=== PATIENT | female | born 1995 | race Caucasian/White ===

== ENCOUNTER 2021-02-02 09:30 | Outpatient (CLI) | payer OTHER ==
[2021-02-02 16:14] LABS: BILIRUBIN,URINE NEGATIVE (NEGATIVE); GLUCOSE, URINE (UA) NEGATIVE (NEGATIVE); KETONES,URINE (UA) NEGATIVE (NEGATIVE); LEUKOCYTE ESTERASE, URINE NEGATIVE (NEGATIVE); NITRITE,URINE NEGATIVE (NEGATIVE); OCCULT BLOOD,URINE NEGATIVE (NEGATIVE); PROTEIN,URINE NEGATIVE (NEGATIVE); UROBILINOGEN,URINE 0.2 (NORMAL) E.U./dL (NORMAL)
[2021-02-02 16:29] LABS: BACTERIA,URINE Many /HPF (None Seen); CLARITY,URINE CLEAR (CLEAR); RBC,URINE None Seen /HPF (0-5); SQUAMOUS EPITHELIAL CELL,UR MANY Squamous (<= Few); WBC,URINE 0-3 /HPF (0-5)
== END 2021-02-02 23:59 | disposition home or self-care (01) ==
LOC: LAB.WC 09:30
PROVIDERS: ATTEND Obstetrics & Gynecology
DX: Z32.01 Encounter for pregnancy test, result positive (principal)
CPT/HCPCS: 81001; 87086

== ENCOUNTER 2021-03-11 16:20 | Outpatient (CLI) | payer OTHER ==
--- NOTE | 2021-03-12 09:10 | Ultrasound Report ---
PROCEDURE: OB First Trimester INDICATIONS: +PREG TEST OUTSIDE/PRIOR DATING DATA: Last menstrual period (LMP): 12/20/2020. LMP-based estimated date of delivery (PAOLA): 09/26/2021. First dating scan (date and location): 03/11/2021. Estimated date of delivery (PAOLA) from first dating scan: 09/24/2021. The below data below was generated using the ultrasound generated PAOLA of 09/24/2021 TECHNIQUE: Real-time scanning was performed of the fetus and maternal pelvic organs, with image documentation. COMPARISON: None. FINDINGS: Embryo: Mean gestational sac diameter is 5.8 cm. [place]-rump length measures 5.3 cm. These measuremen ts correspond to a gestational age of 11 weeks 6 days. Heart rate: 176 bpm Measurement variability in dating: +/- 4 weeks by LMP, +/- 7 days by mean sac diameter (use before 6 weeks gestation if crown-rump length not able to be measured), +/- 5 days by crown-rump length (6-12 weeks gestation). Maternal organs: Ovaries normal. Right corpus luteum cyst noted. IMPRESSION: Single live intrauterine gestation with estimated ultrasound age of 11 weeks 6 days and estimated cristopher e of delivery 09/24/2021. Reviewed by: Nahum Silver MD on 03/12/2021 9:08 AM PST Approved by: Nahum Silver MD on 03/12/2021 9:08 AM PST Station ID: [id number]
== END 2021-03-11 16:21 | disposition home or self-care (01) ==
LOC: DI 16:20
PROVIDERS: ATTEND Obstetrics & Gynecology
DX: Z32.01 Encounter for pregnancy test, result positive (principal)

== ENCOUNTER 2021-03-12 13:15 | Outpatient (CLI) | payer OTHER ==
[2021-03-12 22:09] LABS: CHLAMYDIA TRACHOMATIS DNA NEGATIVE (NEGATIVE); NEISSERIA GONORRHOEAE DNA NEGATIVE (NEGATIVE); TRICHOMONAS VAGINALIS DNA NEGATIVE (NEGATIVE)
== END 2021-03-12 23:59 | disposition home or self-care (01) ==
LOC: LAB 13:15
PROVIDERS: ATTEND Obstetrics & Gynecology
DX: Z11.3 Encounter for screening for infections with a predominantly sexual mode of transmission (principal); A59.00 Urogenital trichomoniasis, unspecified
CPT/HCPCS: 87491; 87591; 87661

== ENCOUNTER 2021-05-07 10:47 | Outpatient (CLI) | payer OTHER ==
[2021-05-08 15:41] LABS: AFP MOM 1.13; AGE RISK DOWN SYNDROME 1 IN 1024; CALC'D GESTATIONAL AGE 19.7 weeks; CIGARETTE SMOKER? NOT GIVEN; DONOR AGE: EGG RETRIEVAL NOT GIVEN; DONOR EGG NO; ESTRIOL MOM 0.81; HCG MOM 1.76; HX OF NEURAL TUBE DEFECTS NO; INHIBIN A MOM 1.05; INSULIN DEPEND DIABETIC NO; MATERNAL WEIGHT 213 lbs; MSS DOWN SYNDROME RISK 1 IN 3968; MSS3 TRISOMY 18 RISK <1 IN 5000; NUMBER OF FETUSES 1; PREV PREGNANCY DOWN SYND NO; RISK FOR ONTD 1 IN 2539
== END 2021-05-07 10:48 | disposition home or self-care (01) ==
LOC: LAB 10:47
PROVIDERS: ATTEND Obstetrics & Gynecology
DX: Z34.90 Encounter for supervision of normal pregnancy, unspecified, unspecified trimester (principal)
CPT/HCPCS: 36415; 81511

== ENCOUNTER 2021-05-10 12:43 | Outpatient (CLI) | payer OTHER ==
[2021-05-10 13:03] LABS: BASOPHILS % (AUTO) 0.4 %; EOSINOPHILS # (AUTO) 0.4 10^3/uL (0.0-0.7); EOSINOPHILS % (AUTO) 3.8 %; HCT - HEMATOCRIT 35.5 % (37.0-47.0); HGB - HEMOGLOBIN 12.2 g/dL (12.0-16.0); LYMPHOCYTES # (AUTO) 2.1 10^3/uL (1.5-3.5); LYMPHOCYTES % (AUTO) 21.1 %; MEAN CORPUSCULAR HEMOGLOBIN 30.1 pg (27.0-31.0); MEAN CORPUSCULAR HGB CONC 34.4 g/dL (32.0-36.0); MEAN CORPUSCULAR VOLUME 87.7 fL (81.0-99.0); MEAN PLATELET VOLUME 10.3 fL (7.9-10.8); MONOCYTES # (AUTO) 0.7 10^3/uL (0.0-1.0); MONOCYTES % (AUTO) 6.8 %; NEUTROPHILS # (AUTO) 6.8 10^3/uL (1.5-6.6); NEUTROPHILS % (AUTO) 67.4 %; PLT - PLATELET COUNT 248 10^3/uL (130-450); RED BLOOD COUNT 4.05 10^6/uL (4.20-5.40); RED CELL DISTRIBUTION WIDTH 12.9 % (12.0-15.0); WHITE BLOOD COUNT 10.1 x10^3/uL (4.8-10.8)
[2021-05-11 09:26] LABS: HEPATITIS C ANTIBODY NON-REACTIVE (NON-REACTIVE)
[2021-05-11 11:56] LABS: HEPATITIS B SURFACE ANTIGEN NON-REACTIVE (NON-REACTIVE)
[2021-05-11 13:10] LABS: HIV AG/AB 4TH GEN NON-REACTIVE (NON-REACTIVE)
== END 2021-05-10 12:44 | disposition home or self-care (01) ==
LOC: LAB 12:43
PROVIDERS: ATTEND Obstetrics & Gynecology
DX: Z36.89 Encounter for other specified antenatal screening (principal)
CPT/HCPCS: 36415; 85025; 86592; 86762; 86787; 86803; 86850; 86900; 86901; 87340; 87389

== ENCOUNTER 2021-05-14 20:25 | Outpatient (CLI) | payer OTHER ==
--- NOTE | 2021-05-15 12:13 | Ultrasound Report ---
PROCEDURE: OB Detailed Eval INDICATIONS: SUPERVISION NORMAL OUTSIDE/PRIOR DATING DATA: Last menstrual period (LMP): 12/20/2020. LMP-based estimated date of delivery (PAOLA): 09/26/2021. First dating scan (date and location): 03/11/2021. Estimated date of delivery (PAOLA) from first dating scan: 09/24/2021. The below data below was generated using the ultrasound PAOLA of 09/24/2021 TECHNIQUE: Real-time scanning was performed of the fetus, with image documentation and biometric measurements. Endovaginal scanning: Performed COMPARISON: 03/11/2021. FINDINGS: General: A single living intrauterine gestation is present. Presentation: Variable Placenta: Placental position is anterior, without previa. Amniotic fluid index: 14.8 cm, normal 5-24 cm. Single largest amniotic fluid pocket 4.7 cm. heart rate: 164 beats per minute. Maternal cervical canal: Closed and 4.8 cm long; normal length is 2.5 cm or more. biometrics: Biparietal diameter: 19 weeks 6 days Head circumference: 20 weeks 6 days Abdominal circumference: 21 weeks 3 days Femur length: 21 weeks 2 days Estimated gestational age from initial scan: 21 weeks 0 days. Composite gestational age from present scan: 20 weeks 4 days Estimated weight and percentile: 406 g; 56th percentile Measurement variability in biometric dating: +/- 10 days from 12-20 weeks gestation, +/- 2 weeks from 20-30 weeks gestation, +/- 3 weeks at 30 weeks gestation or later. Anatomic survey: Neuro: Ventricles are normal at less than 10 mm. Cisterna magna is normal at 3-11 mm. Cerebellum i s normal in size and morphology. Nuchal skin fold: Normal at less than 6 mm between 14 and 20 weeks gestational age. Face: Nose and lips are normal. profile not well visualized due to position Spine: Not well-visualized due to position. Heart: 4-chambered heart is present. Left ventricular outflow tract not well-visualized due to position. Diaphragm: Diaphragm is intact. Stomach: Left-sided stomach is present. Kidneys: No hydronephrosis. Normal is less than 5 mm in 2nd trimester, less than 7 mm in 3rd trimester. Cord: 3 vessel cord has orthotopic insertion. Bladder: Normal in size. Extremities: All 4 extremities are visualized. IMPRESSION: 1. Single living intrauterine fetus with appropriate interval growth. 2. Normal amniotic fluid index. 3. facial profile, spine and heart left ventricle outflow tract not well visualized and cannot be evaluated. Recommend short-term follow-up limited obstetrical ultrasound. anatom ic survey otherwise normal. Reviewed by: Beverly Hernandez MD, PhD on 05/15/2021 12:12 PM PST Approved by: Beverly Hernandez MD, PhD on 05/15/2021 12:12 PM PST Station ID: [id number]
== END 2021-05-14 20:26 | disposition home or self-care (01) ==
LOC: DI 20:25
PROVIDERS: ATTEND Obstetrics & Gynecology
DX: Z34.02 Encounter for supervision of normal first pregnancy, second trimester (principal); Z3A.20 20 weeks gestation of pregnancy; Z36.89 Encounter for other specified antenatal screening

== ENCOUNTER 2021-05-19 11:19 | Outpatient (CLI) | payer OTHER ==
--- NOTE | 2021-05-19 18:25 | Ultrasound Report ---
PROCEDURE: OB F/U or Repeat INDICATIONS: SUPERVISION OF OUTSIDE/PRIOR DATING DATA: Last menstrual period (LMP): 12/20/2020. LMP-based estimated date of delivery (PAOLA): 09/26/2021. First dating scan (date and location): 03/11/2021. Estimated date of delivery (PAOLA) from first dating scan: 09/24/2021. The below data below was generated using the ultrasound PAOLA of 09/24/2021 TECHNIQUE: Real-time scanning was performed of the fetus, with image documentation. COMPARISON: 05/14/2021, 03/11/2021 FINDINGS: General: A single live intrauterine gestation is present. Presentation: Breech Placenta: Placental position is anterior, without previa. Amniotic fluid index: 13.5 cm, within normal limits for gestational age. Largest pocket of fluid: 4.1 cm heart rate: 150 beats per minute. Maternal cervical canal: 5.8 cm long; normal length is 2.5 cm or more. The spine and the skin line are unremarkable. The left ventricular outflow tract is unremarkable. An echogenic cardiac focus can be seen. IMPRESSION: The spine and the skin line are within normal limits. The left ventricular contractility is unremarkable. An echogenic intracardiac focus is noted. While this has been described in patients with chromosomal abnormalities, it is most commonly a benign, incidental finding. Reviewed by: Wade Tobar MD on 05/19/2021 5:23 PM [facility] Approved by: Wade Tobar MD on 05/19/2021 5:23 PM [facility] Station ID: [id number]
== END 2021-05-19 11:20 | disposition home or self-care (01) ==
LOC: DI 11:19
PROVIDERS: ATTEND Obstetrics & Gynecology
DX: Z34.00 Encounter for supervision of normal first pregnancy, unspecified trimester (principal)

== ENCOUNTER 2021-07-11 11:53 | Outpatient (CLI) | payer OTHER ==
[2021-07-11 13:22] LABS: HCT - HEMATOCRIT 33.2 % (37.0-47.0); HGB - HEMOGLOBIN 11.2 g/dL (12.0-16.0); MEAN CORPUSCULAR HEMOGLOBIN 29.6 pg (27.0-31.0); MEAN CORPUSCULAR HGB CONC 33.7 g/dL (32.0-36.0); MEAN CORPUSCULAR VOLUME 87.6 fL (81.0-99.0); MEAN PLATELET VOLUME 9.3 fL (7.9-10.8); RED BLOOD COUNT 3.79 10^6/uL (4.20-5.40); RED CELL DISTRIBUTION WIDTH 12.2 % (12.0-15.0); WHITE BLOOD COUNT 10.1 x10^3/uL (4.8-10.8)
== END 2021-07-11 11:54 | disposition home or self-care (01) ==
LOC: LAB 11:53
PROVIDERS: ATTEND Obstetrics & Gynecology
DX: Z34.00 Encounter for supervision of normal first pregnancy, unspecified trimester (principal); Z36.89 Encounter for other specified antenatal screening
CPT/HCPCS: 36415; 82950; 85027

== ENCOUNTER 2021-07-26 13:46 | Outpatient (CLI) | payer OTHER ==
[2021-07-26 14:08] LABS: BASOPHILS % (AUTO) 0.2 %; EOSINOPHILS # (AUTO) 0.4 10^3/uL (0.0-0.7); EOSINOPHILS % (AUTO) 3.5 %; HCT - HEMATOCRIT 34.5 % (37.0-47.0); HGB - HEMOGLOBIN 11.3 g/dL (12.0-16.0); LYMPHOCYTES # (AUTO) 2.1 10^3/uL (1.5-3.5); LYMPHOCYTES % (AUTO) 18.9 %; MEAN CORPUSCULAR HEMOGLOBIN 28.5 pg (27.0-31.0); MEAN CORPUSCULAR HGB CONC 32.8 g/dL (32.0-36.0); MEAN CORPUSCULAR VOLUME 86.9 fL (81.0-99.0); MEAN PLATELET VOLUME 9.4 fL (7.9-10.8); MONOCYTES # (AUTO) 0.7 10^3/uL (0.0-1.0); MONOCYTES % (AUTO) 6.2 %; NEUTROPHILS # (AUTO) 7.6 10^3/uL (1.5-6.6); NEUTROPHILS % (AUTO) 70.5 %; PLT - PLATELET COUNT 282 10^3/uL (130-450); RED BLOOD COUNT 3.97 10^6/uL (4.20-5.40); RED CELL DISTRIBUTION WIDTH 12.1 % (12.0-15.0); WHITE BLOOD COUNT 10.8 x10^3/uL (4.8-10.8)
[2021-07-26 14:15] LABS: CREATININE,URINE 68.3 mg/dL; PROTEIN/CREATININE RATIO,URINE 0.1 (<=0.2)
[2021-07-26 14:20] LABS: ALBUMIN 3.3 g/dL (3.2-5.5); ALBUMIN/GLOBULIN RATIO 0.8 (1.0-2.2); BILIRUBIN,TOTAL 0.5 mg/dL (0.2-1.0); CALCIUM 9.1 mg/dL (8.5-10.3); CREATININE 0.5 mg/dL (0.4-1.0); POTASSIUM 3.6 mmol/L (3.5-5.0); TOTAL PROTEIN 7.6 g/dL (6.7-8.2)
[2021-07-26 14:45] VITALS: BP 129/85
--- NOTE | 2021-07-26 16:54 | PROVIDER PROGRESS NOTE ---
- HPI Chief Complaint: Hypertension/PIH Current : Current EDU 09/26/21 Gestation 31 Weeks and 1 Days 3 Para 2 Vital Signs Temperature 98.1 F 07/26/21 14:04 Heart Rate 116 H 07/26/21 14:04 Respiratory Rate 16 07/26/21 14:04 Blood Pressure 153/88 H 07/26/21 14:04 O2 Saturation 100 07/26/21 14:04 Temperature 97.9 F 07/26/21 15:22 Heart Rate 120 H 07/26/21 14:13 Respiratory Rate 17 07/26/21 14:13 Blood Pressure 129/85 H 07/26/21 14:45 O2 Saturation 100 07/26/21 14:13 - Procedures OB Procedure Performed: NST Diagnosis/Indication for NST: Gestational Hypertension NST Procedure: NST Procedure Start Date 07/26/21 Start Time 14:00 Stop Time 14:30 Vibroacoustic Stimulation Used No Patient States Movement Yes Service Date of procedure: 07/26/21 (Read: 07/26/21) Findings: Laboratory Last Values WBC 10.8 x10^3/uL (4.8-10.8) 07/26/21 14:02 RBC 3.97 10^6/uL (4.20-5.40) L 07/26/21 14:02 Hgb 11.3 g/dL (12.0-16.0) L 07/26/21 14:02 Hct 34.5 % (37.0-47.0) L 07/26/21 14:02 MCV 86.9 fL (81.0-99.0) 07/26/21 14:02 MCH 28.5 pg (27.0-31.0) 07/26/21 14:02 MCHC 32.8 g/dL (32.0-36.0) 07/26/21 14:02 RDW 12.1 % (12.0-15.0) 07/26/21 14:02 Plt Count 282 10^3/uL (130-450) 07/26/21 14:02 MPV 9.4 fL (7.9-10.8) 07/26/21 14:02 Neut # (Auto) 7.6 10^3/uL (1.5-6.6) H 07/26/21 14:02 Lymph # (Auto) 2.1 10^3/uL (1.5-3.5) 07/26/21 14:02 Whiteside # (Auto) 0.7 10^3/uL (0.0-1.0) 07/26/21 14:02 Eos # (Auto) 0.4 10^3/uL (0.0-0.7) 07/26/21 14:02 Baso # (Auto) 0.0 10^3/uL (0.0-0.1) 07/26/21 14:02 Absolute Nucleated RBC 0.00 x10^3/uL 07/26/21 14:02 Nucleated RBC % 0.0 /100WBC 07/26/21 14:02 Sodium 132 mmol/L (135-145) L 07/26/21 14:02 Potassium 3.6 mmol/L (3.5-5.0) 07/26/21 14:02 Chloride 101 mmol/L (101-111) 07/26/21 14:02 Carbon Dioxide 20 mmol/L (21-32) L 07/26/21 14:02 Anion Gap 11.0 (6-13) 07/26/21 14:02 BUN 12 mg/dL (6-20) 07/26/21 14:02 Creatinine 0.5 mg/dL (0.4-1.0) 07/26/21 14:02 Estimated GFR (MDRD) 150 (>89) 07/26/21 14:02 Glucose 123 mg/dL (70-100) H 07/26/21 14:02 Calcium 9.1 mg/dL (8.5-10.3) 07/26/21 14:02 Total Bilirubin 0.5 mg/dL (0.2-1.0) 07/26/21 14:02 AST 19 IU/L (10-42) 07/26/21 14:02 ALT 20 IU/L (10-60) 07/26/21 14:02 Alkaline Phosphatase 82 IU/L (42-121) 07/26/21 14:02 Total Protein 7.6 g/dL (6.7-8.2) 07/26/21 14:02 Albumin 3.3 g/dL (3.2-5.5) 07/26/21 14:02 Globulin 4.3 g/dL (2.1-4.2) H 07/26/21 14:02 Albumin/Globulin Ratio 0.8 (1.0-2.2) L 07/26/21 14:02 Urine Creatinine 68.3 mg/dL 07/26/21 14:02 Ur Total Protein Timed 7 mg/dL 07/26/21 14:02 Protein/Creatinin Ratio 0.1 (<=0.2) 07/26/21 14:02 - Plan Plan: Patient is a 25-year-old at 31 weeks 1 day gestation presenting to triage for elevated blood pressures seen in clinic. She has good movement, no leaking, no vaginal bleeding. She denies headache, right upper quadrant pain, changes in vision. All other symptoms reviewed and were negative except per HPI. PMH: Gestational hypertension Past surgical history: Denies previous surgeries Family history: Denies pertinent history Medications: Ondansetron 4 mg as needed, vitamins Social history Denies tobacco, alcohol, drugs Physical Exam Constitutional: alert, no acute distress, well hydrated, well developed, well nourished, appropriate dress. Skin: normal turgor, normal color. Head: atraumatic, normocephalic. Cardiovascular: RRR. Respiratory: no respiratory distress. Abdomen: nondistended, nontender. Spine: normal mobility. Neurologic: normal, sensation intact, motor intact. Psych: affect and mood appropriate, normal interaction, good eye contact. FHT: 130 bpm baseline, moderate variability, accelerations present, no declerations Assessment and plan 25-year-old at 31 weeks 1 day gestation here for NST with gestational hypertension 1. Gestational hypertension -Labs not concerning for worsening disease. Did not meet criteria for preeclampsia. We will continue to monitor at this time. -Blood pressure continues to be elevated, but nonsevere. -Reactive NST -Plan for follow-up in clinic.
== END 2021-07-26 15:05 | disposition home or self-care (01) ==
LOC: WFO 13:46 → FBP 13:49 → WFO 15:05
PROVIDERS: ATTEND Obstetrics & Gynecology
DX: O13.3 Gestational [pregnancy-induced] hypertension without significant proteinuria, third trimester (principal); Z3A.31 31 weeks gestation of pregnancy
CPT/HCPCS: 36415; 59025; 80053; 82570; 84156; 85025; 99214

== ENCOUNTER 2021-07-30 16:15 | Outpatient (CLI) | payer OTHER ==
[2021-07-30 17:22] VITALS: BP 129/63
--- NOTE | 2021-07-30 17:28 | PROVIDER PROGRESS NOTE ---
- HPI Chief Complaint: Leakage of vaginal fluid - Procedures OB Procedure Performed: NST Diagnosis/Indication for NST: Other (Assure wellbeing) NST Procedure: NST Procedure Start Time 14:00 Stop Time 14:30 Service Date of procedure: 07/30/21 (Read: 07/30/21) - Plan Plan: Patient is a 25-year-old -0-0-2 at 31 weeks 5 days gestation complaining of leaking of fluid that started over the weekend. Is happened several times over the last few days. She denies contractions. She has good movement, no vaginal bleeding. She denies headache, right upper quadrant pain, changes in vision. All other symptoms reviewed and were negative except per HPI. OB history -0-0-2 1. 08/15/2015, 41 weeks, 7 pounds 14 ounces 12/10/2019, 40 weeks, 7 pounds 14 ounces. Past medical history No pertinent medical history Past surgical history No prior surgeries Family history No significant family history Social history Denies tobacco, alcohol, drugs Physical Exam Temp Pulse Resp BP Pulse Ox 99.0 F 115 H 129/63 100 07/30/21 17:15 07/30/21 17:15 07/30/21 17:15 07/30/21 16:38 Constitutional: alert, no acute distress, well hydrated, well developed, well nourished, appropriate dress. Head: atraumatic, normocephalic. Cardiovascular: RRR. Respiratory: no respiratory distress. Abdomen: nondistended, nontender. Neurologic: normal, sensation intact, motor intact. Psych: affect and mood appropriate, normal interaction, good eye contact. SSE: Negative pooling, negative Valsalva. Moderate amount of thin white discharge. SVE: 0/0/-3 150 beats per minute baseline, moderate variability, accelerations present, no decelerations. 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 Laboratory Last Values Urine Color YELLOW 07/30/21 16:20 Urine Clarity CLEAR (CLEAR) 07/30/21 16:20 Urine pH 6.5 PH (5.0-7.5) 07/30/21 16:20 Ur Specific [place] 1.020 (1.002-1.030) 07/30/21 16:20 Urine Protein NEGATIVE mg/dL (NEGATIVE) 07/30/21 16:20 Urine Glucose (UA) NEGATIVE mg/dL (NEGATIVE) 07/30/21 16:20 Urine Ketones NEGATIVE mg/dL (NEGATIVE) 07/30/21 16:20 Urine Occult Blood NEGATIVE (NEGATIVE) 07/30/21 16:20 Urine Nitrite NEGATIVE (NEGATIVE) 07/30/21 16:20 Urine Bilirubin NEGATIVE (NEGATIVE) 07/30/21 16:20 Urine Urobilinogen 0.2 (NORMAL) E.U./dL (NORMAL) 07/30/21 16:20 Ur Leukocyte Esterase NEGATIVE (NEGATIVE) 07/30/21 16:20 Ur Microscopic Review NOT INDICATED 07/30/21 16:20 Urine Culture Comments NOT INDICATED 07/30/21 16:20 Membranes Rupture NEGATIVE (NEGATIVE) 07/30/21 16:45 C. glabrata (PCR) NEGATIVE (NEGATIVE) 07/30/21 16:45 C. krusei (PCR) NEGATIVE (NEGATIVE) 07/30/21 16:45 Nohemy species DNA NEGATIVE (NEGATIVE) 07/30/21 16:45 T. vaginalis (PCR) NEGATIVE (NEGATIVE) 07/30/21 16:45 Bact Vaginosis (PCR) NEGATIVE (NEGATIVE) 07/30/21 16:45 Assessment and plan 25-year-old -0-0-2 at 31 weeks 5 days gestation leaking fluid without rupture of membranes. 1. Rule out rupture -Negative ROM plus and nonconcerning sterile speculum exam. -Negative vaginitis panel. Will follow up on GC/CT. 2. 31 weeks gestation -Follow-up in clinic for care. 3. Gestational hypertension -Blood pressures remain elevated but nonsevere. -NST/BPP pending starting at 32 weeks -No significant change from previous exam.
[2021-07-30 17:36] LABS: RUPTURE OF MEMBRANES PLUS NEGATIVE (NEGATIVE)
[2021-07-30 19:12] LABS: BACTERIAL VAGINOSIS DNA NEGATIVE (NEGATIVE); CANDIDA GLABRATA DNA NEGATIVE (NEGATIVE); CANDIDA GROUP DNA NEGATIVE (NEGATIVE); CANDIDA KRUSEI DNA NEGATIVE (NEGATIVE); TRICHOMONAS VAGINALIS DNA NEGATIVE (NEGATIVE)
[2021-07-30 19:18] LABS: BILIRUBIN,URINE NEGATIVE (NEGATIVE); GLUCOSE, URINE (UA) NEGATIVE (NEGATIVE); KETONES,URINE (UA) NEGATIVE (NEGATIVE); LEUKOCYTE ESTERASE, URINE NEGATIVE (NEGATIVE); NITRITE,URINE NEGATIVE (NEGATIVE); OCCULT BLOOD,URINE NEGATIVE (NEGATIVE); PH,URINE 6.5 PH (5.0-7.5); PROTEIN,URINE NEGATIVE (NEGATIVE); UROBILINOGEN,URINE 0.2 (NORMAL) E.U./dL (NORMAL)
[2021-07-30 19:22] LABS: CLARITY,URINE CLEAR (CLEAR)
[2021-07-30 20:53] LABS: CHLAMYDIA TRACHOMATIS DNA NEGATIVE (NEGATIVE); NEISSERIA GONORRHOEAE DNA NEGATIVE (NEGATIVE)
== END 2021-07-30 18:25 | disposition home or self-care (01) ==
LOC: WFO 16:15 → FBP 16:17 → WFO 18:25
PROVIDERS: ATTEND Obstetrics & Gynecology
DX: O99.891 Other specified diseases and conditions complicating pregnancy (principal); N89.8 Other specified noninflammatory disorders of vagina; O13.3 Gestational [pregnancy-induced] hypertension without significant proteinuria, third trimester; Z3A.31 31 weeks gestation of pregnancy
CPT/HCPCS: 81001; 81003; 81514; 84112; 87086; 87491; 87591; 87661; 99214

== ENCOUNTER 2021-08-02 09:55 | Outpatient (CLI) | payer OTHER ==
[2021-08-02 10:38] LABS: BASOPHILS % (AUTO) 0.1 %; EOSINOPHILS # (AUTO) 0.1 10^3/uL (0.0-0.7); EOSINOPHILS % (AUTO) 0.6 %; HCT - HEMATOCRIT 31.9 % (37.0-47.0); HGB - HEMOGLOBIN 10.5 g/dL (12.0-16.0); LYMPHOCYTES # (AUTO) 1.5 10^3/uL (1.5-3.5); LYMPHOCYTES % (AUTO) 14.5 %; MEAN CORPUSCULAR HEMOGLOBIN 28.6 pg (27.0-31.0); MEAN CORPUSCULAR HGB CONC 32.9 g/dL (32.0-36.0); MEAN CORPUSCULAR VOLUME 86.9 fL (81.0-99.0); MEAN PLATELET VOLUME 9.5 fL (7.9-10.8); MONOCYTES # (AUTO) 0.7 10^3/uL (0.0-1.0); MONOCYTES % (AUTO) 6.6 %; NEUTROPHILS # (AUTO) 7.8 10^3/uL (1.5-6.6); NEUTROPHILS % (AUTO) 77.1 %; PLT - PLATELET COUNT 254 10^3/uL (130-450); RED BLOOD COUNT 3.67 10^6/uL (4.20-5.40); RED CELL DISTRIBUTION WIDTH 12.3 % (12.0-15.0); WHITE BLOOD COUNT 10.1 x10^3/uL (4.8-10.8)
[2021-08-02 10:51] LABS: ALBUMIN 2.9 g/dL (3.2-5.5); ALBUMIN/GLOBULIN RATIO 0.7 (1.0-2.2); BILIRUBIN,TOTAL 0.7 mg/dL (0.2-1.0); CALCIUM 8.7 mg/dL (8.5-10.3); CREATININE 0.5 mg/dL (0.4-1.0); POTASSIUM 3.8 mmol/L (3.5-5.0); TOTAL PROTEIN 6.9 g/dL (6.7-8.2)
[2021-08-02 11:30] LABS: CREATININE,URINE 143.4 mg/dL; PROTEIN/CREATININE RATIO,URINE 0.1 (<=0.2)
[2021-08-02 11:37] VITALS: BP 121/80
--- NOTE | 2021-08-02 11:45 | Ultrasound Report ---
PROCEDURE: OB Biophysical Profile INDICATIONS: GHTN OUTSIDE/PRIOR DATING DATA: Last menstrual period (LMP): 12/20/2020. LMP-based estimated date of delivery (PAOLA): 09/26/2021. First dating scan (date and location): 03/01/2021. Estimated date of delivery (PAOLA) from first dating scan: 09/24/2021. The below data below was generated using the ultrasound PAOLA TECHNIQUE: Real-time scanning was performed of the fetus, with image documentation and biometric gautam surements. Biophysical profile was also obtained. Endovaginal scanning: Not performed COMPARISON: 05/19/2021 FINDINGS: General: A single living intrauterine gestation is present. Presentation: Breech Placenta: Placental position is anterior, without previa. Amniotic fluid index: 12.0 cm, within normal limits for gestational age. heart rate: 131 beats per minute. Maternal cervical canal: 5.5 cm long; normal length is 2.5 cm or more. Biophysical profile: Tone: 2 points. Movement: 2 points. Respiration: 2 points. Largest pocket of fluid: 2 points. Umbilical artery Doppler: 2.7 IMPRESSION: 1. Living third trimester intrauterine with no sonographic evidence of complications. 2. Ultrasound biophysical profile is 8 out of 8. Reviewed by: Avinash Leyva MD on 08/02/2021 11:44 AM PDT Approved by: Avinash Leyva MD on 08/02/2021 11:44 AM PDT Station ID: [id number]
--- NOTE | 2021-08-02 19:34 | PROVIDER PROGRESS NOTE ---
- HPI Chief Complaint: Hypertension/PIH Current : Current EDU 09/26/21 Gestation 32 Weeks and 1 Days 3 Para 2 Vital Signs Temperature 98.6 F 08/02/21 10:04 Heart Rate 115 H 08/02/21 10:04 Respiratory Rate 20 08/02/21 10:04 Temperature 98.6 F 08/02/21 10:04 Heart Rate 90 08/02/21 11:32 Respiratory Rate 20 08/02/21 11:32 Blood Pressure 121/80 08/02/21 11:32 O2 Saturation - Procedures OB Procedure Performed: NST Diagnosis/Indication for NST: Gestational Hypertension NST Procedure: NST Procedure Start Date 08/02/21 Start Time 10:20 Stop Time 10:40 Vibroacoustic Stimulation Used No Patient States Movement Yes - Plan Plan: Patient is a 25-year-old G3, P2 at 32 weeks 1 day gestation presenting to triage for visual disturbances yesterday. She had episode of seeing scotoma for approximately 10 minutes and denies other visual changes. This has not happened since. She has good movement, no leaking, no vaginal bleeding. No headache or right upper quadrant pain. complications Gestational hypertension Physical Exam Constitutional: alert, no acute distress, well hydrated, well developed, well nourished, appropriate dress. Cardiovascular: RRR. Respiratory: no respiratory distress. Abdomen: nondistended, nontender. Psych: affect and mood appropriate, normal interaction, good eye contact. NST: 135 beats per minute baseline, accelerations present, no decelerations. [place]: Quiescent Assessment and plan 25-year-old G3, P2 at 32 weeks 1 day gestation with gestational hypertension 1. Gestational hypertension No significant change in features. Labs not concerning for worsening disease. 2. 32 weeks gestation -Follow-up in clinic as outpatient 3. Visual disturbances -Resolved spontaneously
== END 2021-08-02 11:32 | disposition home or self-care (01) ==
LOC: WFO 09:55 → FBP 09:57 → WFO 11:32
PROVIDERS: ATTEND Obstetrics & Gynecology
DX: O13.3 Gestational [pregnancy-induced] hypertension without significant proteinuria, third trimester (principal); O99.891 Other specified diseases and conditions complicating pregnancy; H53.459 Other localized visual field defect, unspecified eye; Z3A.32 32 weeks gestation of pregnancy
CPT/HCPCS: 36415; 59025; 80053; 82570; 84156; 85025; 99214

== ENCOUNTER 2021-08-10 18:45 | Outpatient (CLI) | payer OTHER ==
--- NOTE | 2021-08-11 02:33 | Ultrasound Report ---
PROCEDURE: OB Biophysical Profile INDICATIONS: GESTATIONAL HYPERTENSION OUTSIDE/PRIOR DATING DATA: Last menstrual period (LMP): 12/20/2020. LMP-based estimated date of delivery (PAOLA): 09/26/2021. First dating scan (date and location): 03/11/21. Estimated date of delivery (PAOLA) from first dating scan: 09/24/2021. The below data below was generated using the ultrasound PAOLA of 09/24/2021 TECHNIQUE: Real-time scanning was performed of the fetus, with image documentation . Biophysical pr ofile was also obtained. COMPARISON: None. FINDINGS: General: A single living intrauterine gestation is present. Presentation: Vertex Placenta: Placental position is anterior, without previa. Amniotic fluid index: 12.9 cm, within normal limits for gestational age. heart rate: 140 beats per minute. Maternal cervical canal: 4.8 cm long; normal length is 2.5 cm or more. Estimated gestational age from initial scan: 33 weeks 4 days Biophysical profile: Tone: 2 points. Movement: 2 points. Respiration: 2 points. Largest pocket of fluid: 2 points. (4 cm.) Umbilical artery Doppler: Systolic/diastolic ratios of 3.0 , 3.0 in the mid cord, and 3.5 at the fet al abdomen. IMPRESSION: 1. Single living intrauterine in vertex presentation redemonstrated. 2. Biophysical profile score 8/8. 3. Umbilical artery Doppler within normal limits with preserved diastolic flow demonstrated. Reviewed by: Enoc Simmons MD on 08/11/2021 2:32 AM PDT Approved by: Enoc Simmons MD on 08/11/2021 2:32 AM PDT Station ID: [id number]
== END 2021-08-10 18:46 | disposition home or self-care (01) ==
LOC: DI 18:45
PROVIDERS: ATTEND Obstetrics & Gynecology
DX: O13.3 Gestational [pregnancy-induced] hypertension without significant proteinuria, third trimester (principal); Z3A.33 33 weeks gestation of pregnancy

== ENCOUNTER 2021-08-17 17:56 | Outpatient (CLI) | payer OTHER ==
[2021-08-17 18:24] VITALS: BP 127/74
--- NOTE | 2021-08-17 20:38 | PROCEDURE REPORT ---
- HPI Current EDU 09/26/21 Gestation 34 Weeks and 2 Days 3 Para 2 Vital Signs Temperature 98.6 F 08/17/21 18:17 Heart Rate 94 08/17/21 18:17 Respiratory Rate 17 08/17/21 18:17 Blood Pressure 127/74 08/17/21 18:17 Temperature 98.6 F 08/17/21 19:01 Heart Rate 96 08/17/21 19:01 Respiratory Rate 17 08/17/21 19:01 Blood Pressure 127/74 08/17/21 19:01 O2 Saturation - NST Procedure NST Procedure Start Date 08/17/21 Start Time 18:05 Stop Time 18:46 Patient States Movement Yes - Results and Plan Plan: Patient is a 25-year-old -0-0-2 at 34 weeks 2 days gestation here for scheduled NST. NST Performed 08/17/2021 NST Read 08/17/2021 FHT: 135 bpm baseline, moderate variability, accelerations present, no decelerations. [Reactive NST] [place]: Quiescent Diagnosis Gestational hypertension 34 weeks gestation Continue with twice weekly NST.
== END 2021-08-17 19:00 | disposition home or self-care (01) ==
LOC: WFO 17:56 → FBP 17:59 → WFO 19:00
PROVIDERS: ATTEND Obstetrics & Gynecology
DX: O13.3 Gestational [pregnancy-induced] hypertension without significant proteinuria, third trimester (principal); Z3A.34 34 weeks gestation of pregnancy
CPT/HCPCS: 59025

== ENCOUNTER 2021-08-17 18:58 | Outpatient (CLI) | payer OTHER ==
--- NOTE | 2021-08-18 02:10 | Ultrasound Report ---
PROCEDURE: OB Biophysical Profile INDICATIONS: GESTATIONAL HYPERTENSION OUTSIDE/PRIOR DATING DATA: Last menstrual period (LMP): 12/20/2020. LMP-based estimated date of delivery (PAOLA): 09/26/2021. First dating scan (date and location): 03/11/2021. Estimated date of delivery (PAOLA) from first dating scan: 09/24/2021. The below data below was generated using the ultrasound PAOLA of 09/24/2021 TECHNIQUE: Real-time scanning was performed of the fetus, with image documentation and biometric gautam surements. Biophysical profile was also obtained. COMPARISON: 08/10/2021, 08/17/2021, 05/19/2021. FINDINGS: General: A single living intrauterine gestation is present. Presentation: Vertex Placenta: Placental position is anterior, without previa. Amniotic fluid index: 12 6 cm, within normal limits for gestational age. heart rate: 124 beats per minute. Maternal cervical canal: 4.4 cm long; normal length is 2.5 cm or more. biometrics: Biparietal diameter: 8.3 cm, 33 weeks 4 days Head circumference: 31.5 cm, 35 weeks 2 days Abdominal circumference: 27.2 cm, 31 weeks 2 days Femur length: 7.1 cm, 36 weeks 4 days Estimated gestational age from initial scan: 34 weeks 4 days Composite gestational age from present scan: 34 weeks 1 day Estimated weight and percentile: 2211 g, 18th percentile Measurement variability in biometric dating: +/- 10 days from 12-20 weeks gestation, +/- 2 weeks from 20-30 weeks gestation, +/- 3 weeks at 30 weeks gestation or later. Biophysical profile: Tone: 2 points. Movement: 2 points. Respiration: 2 points. Largest pocket of fluid: 2 points. (4.5 cm) Umbilical artery Doppler: Systolic/diastolic ratios along the course of the umbilical artery measuri ng 2.3, 2.9, 2.4 IMPRESSION: 1. Single living intrauterine demonstrating interval growth with estimated weight at the 18th percentile. 2. Biophysical profile of 11/05. 3. Umbilical artery within normal limits with preserved diastolic flow demonstrated. Reviewed by: Enoc Simmons MD on 08/18/2021 2:09 AM PDT Approved by: Enoc Simmons MD on 08/18/2021 2:09 AM PDT Station ID: [id number]
== END 2021-08-17 18:59 | disposition home or self-care (01) ==
LOC: DI 18:58
PROVIDERS: ATTEND Obstetrics & Gynecology
DX: O13.3 Gestational [pregnancy-induced] hypertension without significant proteinuria, third trimester (principal); Z3A.34 34 weeks gestation of pregnancy

== ENCOUNTER 2021-08-17 18:59 | Outpatient (CLI) | payer OTHER ==
--- NOTE | 2021-08-18 02:11 | Ultrasound Report ---
PROCEDURE: OB F/U or Repeat INDICATIONS: GESTATIONAL HYPERTENSION OUTSIDE/PRIOR DATING DATA: Last menstrual period (LMP): 12/20/2020. LMP-based estimated date of delivery (PAOLA): 09/26/2021. First dating scan (date and location): 03/11/2021. Estimated date of delivery (PAOLA) from first dating scan: 09/24/2021. The below data below was generated using the ultrasound PAOLA of 09/24/2021 TECHNIQUE: Real-time scanning was performed of the fetus, with image documentation and biometric gautam surements. Biophysical profile was also obtained. COMPARISON: 08/10/2021, 08/17/2021, 05/19/2021. FINDINGS: General: A single living intrauterine gestation is present. Presentation: Vertex Placenta: Placental position is anterior, without previa. Amniotic fluid index: 12 6 cm, within normal limits for gestational age. heart rate: 124 beats per minute. Maternal cervical canal: 4.4 cm long; normal length is 2.5 cm or more. biometrics: Biparietal diameter: 8.3 cm, 33 weeks 4 days Head circumference: 31.5 cm, 35 weeks 2 days Abdominal circumference: 27.2 cm, 31 weeks 2 days Femur length: 7.1 cm, 36 weeks 4 days Estimated gestational age from initial scan: 34 weeks 4 days Composite gestational age from present scan: 34 weeks 1 day Estimated weight and percentile: 2211 g, 18th percentile Measurement variability in biometric dating: +/- 10 days from 12-20 weeks gestation, +/- 2 weeks from 20-30 weeks gestation, +/- 3 weeks at 30 weeks gestation or later. Biophysical profile: Tone: 2 points. Movement: 2 points. Respiration: 2 points. Largest pocket of fluid: 2 points. (4.5 cm) Umbilical artery Doppler: Systolic/diastolic ratios along the course of the umbilical artery measuri ng 2.3, 2.9, 2.4 IMPRESSION: 1. Single living intrauterine demonstrating interval growth with estimated weight at the 18th percentile. 2. Biophysical profile of 11/05. 3. Umbilical artery within normal limits with preserved diastolic flow demonstrated. Reviewed by: Enoc Simmons MD on 08/18/2021 2:10 AM PDT Approved by: Enoc Simmons MD on 08/18/2021 2:10 AM PDT Station ID: [id number]
== END 2021-08-17 19:00 | disposition home or self-care (01) ==
LOC: DI 18:59
PROVIDERS: ATTEND Obstetrics & Gynecology
DX: O13.3 Gestational [pregnancy-induced] hypertension without significant proteinuria, third trimester (principal); Z3A.34 34 weeks gestation of pregnancy

== ENCOUNTER 2021-08-20 09:50 | Outpatient (CLI) | payer OTHER ==
[2021-08-20 11:00] VITALS: BP 125/74
--- NOTE | 2021-08-20 11:15 | PROCEDURE REPORT ---
- HPI Diagnosis/Indication for NST: Gestational Hypertension Current EDU 08/26/21 Gestation 39 Weeks and 1 Days 3 Para 2 Vital Signs Temperature 97.8 F 08/20/21 10:00 Heart Rate 107 H 08/20/21 10:00 Respiratory Rate 18 08/20/21 10:00 Blood Pressure 124/75 08/20/21 10:00 Temperature 97.9 F 08/20/21 10:20 Heart Rate 107 H 08/20/21 10:20 Respiratory Rate 18 08/20/21 10:20 Blood Pressure 125/74 08/20/21 10:20 O2 Saturation - NST Procedure NST Procedure Start Date 08/20/21 Start Time 10:00 Stop Time 10:25 Vibroacoustic Stimulation Used No Patient States Movement Yes EFM: 130s, moderate variability, positive accelerations 15x15, no decelerations [place]: no contractions NST reactive - Results and Plan Findings/Impression: 25yo at 34.5w presenting for scheduled NST for gestational hypertension - NST reactive - Follow up with primary OB as scheduled - Dating is at 34.5w today, error in above documentation at (39w)
== END 2021-08-20 10:30 | disposition home or self-care (01) ==
LOC: WFO 09:50 → FBP 09:52 → WFO 10:30
PROVIDERS: ATTEND Obstetrics & Gynecology
DX: O13.3 Gestational [pregnancy-induced] hypertension without significant proteinuria, third trimester (principal); Z3A.34 34 weeks gestation of pregnancy
CPT/HCPCS: 59025; 99214

== ENCOUNTER 2021-08-23 09:08 | Outpatient (CLI) | payer OTHER ==
--- NOTE | 2021-08-23 11:38 | Ultrasound Report ---
PROCEDURE: OB Biophysical Profile INDICATIONS: GESTATIONAL HYPERTENSION OUTSIDE/PRIOR DATING DATA: Last menstrual period (LMP): 12/20/2020. LMP-based estimated date of delivery (PAOLA): 09/26/2021. First dating scan (date and location): 03/11/2021. Estimated date of delivery (PAOLA) from first dating scan: 09/24/2021. The below data below was generated using the ultrasound PAOLA of 09/24/2021 TECHNIQUE: Real-time scanning was performed of the fetus, with image documentation. Biophysical pro file was also obtained. Endovaginal scanning: Not performed COMPARISON: Several prior studies, the most recent from 08/18/2021 FINDINGS: General: A single living intrauterine gestation is present. Presentation: Vertex Placenta: Placental position is anterior, without previa. Amniotic fluid index: 12.6 cm, largest pocket is 4.4 cm in depth, normal for gestational age. heart rate: 155 beats per minute. Maternal cervical canal: Closed and 4.8 cm long; normal length is 2.5 cm or more. Biophysical profile: Tone: 2 points. Movement: 2 points. Respiration: 2 points. Largest pocket of fluid: 2 points. Umbilical artery Doppler: 2.32, 2.27, 2.20, normal IMPRESSION: 1. Single living intrauterine with normal biophysical profile, 8 out of 8. 2. Normal umbilical artery Dopplers. 3. Normal amniotic fluid volume. Reviewed by: Katheryn Agrawal MD on 08/23/2021 11:37 AM PDT Approved by: Katheryn Agrawal MD on 08/23/2021 11:37 AM PDT Station ID: [id number]
== END 2021-08-23 09:09 | disposition home or self-care (01) ==
LOC: DI 09:08
PROVIDERS: ATTEND Obstetrics & Gynecology
DX: O13.3 Gestational [pregnancy-induced] hypertension without significant proteinuria, third trimester (principal)

== ENCOUNTER 2021-08-30 10:08 | Outpatient (CLI) | payer OTHER ==
--- NOTE | 2021-08-31 09:56 | Ultrasound Report ---
PROCEDURE: OB Biophysical Profile INDICATIONS: GESTATIONAL HYPERTENSION OUTSIDE/PRIOR DATING DATA: Last menstrual period (LMP): 12/20/2020. LMP-based estimated date of delivery (PAOLA): 09/26/2021. First dating scan (date and location): 03/11/2021. Estimated date of delivery (POAL[facility]) from first dating scan: 09/24/2021. The below data below was generated using the ultrasound generated PAOLA of 09/24/2021 TECHNIQUE: Real-time scanning was performed of the fetus, with image documentation and biometric gautam surements. Biophysical profile was also obtained. Endovaginal scanning: Not performed COMPARISON: None. FINDINGS: General: A single living intrauterine gestation is present. Presentation: Vertex Placenta: Placental position is anterior, without previa. Amniotic fluid index: 11.1 cm, normal for gestational age. heart rate: 127 beats per minute. Maternal cervical canal: 5.9 cm long; normal length is 2.5 cm or more. Biophysical profile: Tone: 2 points. Movement: 2 points. Respiration: 2 points. Largest pocket of fluid: 2 points. Umbilical artery Doppler: S/D ratios were 2.1, 2.3, and 2.1 at the abdomen, mid segment, and placent a, respectively. IMPRESSION: Single living intrauterine gestation. Normal biophysical profile. Normal cord Doppler S/D ratios. Reviewed by: Nahum Silver MD on 08/31/2021 9:55 AM PDT Approved by: Nahum Silver MD on 08/31/2021 9:55 AM PDT Station ID: [id number]
== END 2021-08-30 10:09 | disposition home or self-care (01) ==
LOC: DI 10:08
PROVIDERS: ATTEND Obstetrics & Gynecology
DX: O13.3 Gestational [pregnancy-induced] hypertension without significant proteinuria, third trimester (principal)

== ENCOUNTER 2021-09-03 09:48 | Outpatient (CLI) | payer OTHER ==
--- NOTE | 2021-09-03 10:49 | PROCEDURE REPORT ---
- HPI Diagnosis/Indication for NST: Gestational Hypertension Current EDU 09/26/21 Gestation 36 Weeks and 5 Days 3 Para 2 Vital Signs Temperature 98 F 09/03/21 09:58 Heart Rate 97 09/03/21 09:58 Respiratory Rate 18 09/03/21 09:58 Blood Pressure 118/71 09/03/21 09:58 Temperature 98 F 09/03/21 09:58 Heart Rate 97 09/03/21 09:58 Respiratory Rate 18 09/03/21 09:58 Blood Pressure 118/71 09/03/21 09:58 O2 Saturation Patient is a 35-year-old -0-0-2 at 36 weeks 5 days gestation here for scheduled NST. NST Performed 09/03/2021 NST Read 09/03/2021 FHT: 140 bpm baseline, moderate variability, accelerations present, no decelerations. Reactive NST [place]: quiescent Diagnosis 36 weeks gestation gestational hypertension Is scheduled for induction of labor at 37 weeks. - NST Procedure NST Procedure Start Date 09/03/21 Start Time 09:56 Stop Time 09:57 Patient States Movement Yes
[2021-09-03 13:18] VITALS: BP 127/85
== END 2021-09-03 10:50 | disposition home or self-care (01) ==
LOC: WFO 09:48 → FBP 09:49 → WFO 10:50
PROVIDERS: ATTEND Obstetrics & Gynecology
DX: O13.3 Gestational [pregnancy-induced] hypertension without significant proteinuria, third trimester (principal); Z3A.36 36 weeks gestation of pregnancy
CPT/HCPCS: 59025